=== PATIENT | male | born 1965 | race Caucasian/White ===

== ENCOUNTER 2018-06-03 10:50 | Outpatient (CLI) | payer OTHER ==
--- NOTE | 2018-06-03 12:07 | DI ---
Exam: Cervical spine three-view History: Neck pain FINDINGS: Cervical spine shows normal alignment. Vertebral body height is maintained. Multilevel a nterior endplate spondylosis. Facet arthropathy changes are minimal. No fracture lines or suspiciou s bony lesions. Normal prevertebral soft tissues. Impression: Multilevel degenerative change of the cervical spine mostly manifest by anterior endplat e spondylosis. No acute abnormalities are seen.
--- NOTE | 2018-06-03 12:07 | DI ---
Exam: Two views of the chest. Comparison: CT chest performed 03/26/2014. Reason for exam: Chest pain. FINDINGS: No pneumothorax, pleural effusion, or focal consolidation. The cardiac silhouette is not enlarged. There is mild blunting of the right costophrenic angle. Impression: Mild right basilar atelectasis/pneumonia.
--- NOTE | 2018-06-03 12:08 | DI ---
Exam: Three views of the lumbar spine. Comparison: MRI of the lumbar spine performed 01/28/2009. Reason for exam: Back pain. FINDINGS: No acute fracture or listhesis. The vertebral body heights are well maintained. Degenerat wally disease is seen with intervertebral body disc space height narrowing and osteophyte formation. Impression: No acute fracture or dislocation in the lumbar spine. Mild degenerative disease.
--- NOTE | 2018-06-03 12:24 | DI ---
EXAM: Thoracic spine three view HISTORY: Back pain COMPARISON: None TECHNIQUE: Three views thoracic spine were performed FINDINGS: Bones appear demineralized. Vertebral bodies normal in height. No fracture. No subluxat ion. Mild to moderate multilevel chronic discogenic degenerative disease with intervertebral disc sp jameel narrowing and marginal osteophyte formation. Minimal sinusoidal curvature of the thoracic spine. IMPRESSION: 1. Chronic discogenic degenerative disease. 2. Bones appear demineralized.
--- NOTE | 2018-06-03 12:36 | DI ---
Exam: Two views of the right hip. Comparison: None available. Reason for exam: Hip pain. FINDINGS: No acute fracture or dislocation. The joint spaces appear well maintained. No unexplaine d calcific soft tissue dense or radiopaque retained foreign body. There is mild to moderate medial mariely int space narrowing. Impression: No acute fracture or dislocation is seen in the right hip with joint space narrowing.
--- NOTE | 2018-06-03 13:10 | DI ---
EXAM: Two views of the left hip HISTORY: Left hip pain. COMPARISON: Right hip x-rays same day FINDINGS: There is no lytic or blastic lesion of the left hip. There is mild degenerative change. T he adjacent osseous structures are normal. Calcifications are noted in the pelvis. The soft tissues are normal. IMPRESSION: Minimal degenerative disease of the left hip.
== END 2018-06-03 10:51 | disposition home or self-care (01) ==
LOC: RAD 10:50
PROVIDERS: ATTEND Internal Medicine
DX: M54.9 Dorsalgia, unspecified (principal); R07.9 Chest pain, unspecified; M25.552 Pain in left hip; M25.551 Pain in right hip